=== PATIENT | female | born 1940 | race Caucasian/White ===

== ENCOUNTER 2025-05-04 14:53 | Emergency (ER) | payer MEDICARE, SELFPAY ==
[2025-05-04 15:05] VITALS: BP 141/73; PULSE 70; RESP 18; TEMP 36.3; O2SAT 94
--- OUTSIDE RECORDS SUMMARY | 2025-05-04 15:23 | XMS_ITS | Clinical Summary ---
Author Organization [facility] [employer] [facility] Address [address] [place] [phone] Phone Care Team Providers Care Telephone Clerk Telegraph Office Name Role Phone Bryce Dior MD Primary Care Provider [phone] Allergies Active Allergy Reactions Criticality Noted Date Comments Codeine Hallucinations 11/18/2023 Sulfa Antibiotics Hives 11/18/2023 Medications metoprolol tartrate (LOPRESSOR) 50 MG Tablet Take 50 mg by mouth 2 times daily. Active amLODIPine (NORVASC) 5 MG Tablet Take 5 mg by mouth daily. Active warfarin (COUMADIN) 5 MG Tablet Take 5 mg by mouth every evening. Active ondansetron (ZOFRAN-ODT) 4 MG TABLET DISPERSIBLE Take 1 Tablet by mouth every 6 hours as needed for Nausea - 1st line. 10 Tablet 4 Active polyethylene glycol (GLYCOLAX, MIRALAX) 17 g PackIndications :Constipation Take 1 Packet by mouth 2 times daily as needed for Constipation - 1st line. Dissolve in 4-8 oz of liquid. Indications: Constipation 90 Packet 4 Active senna (SENOKOT) 8.6 MG Tablet Take 1 Tablet by mouth 2 times daily as needed for Constipation - 2nd line. 30 Tablet 4 Active Active Problems Problem Noted Date Diagnosed Date Pulmonary embolism 11/18/2023 Hypertension 11/18/2023 Atrial fibrillation 11/18/2023 Multiple subsegmental pulmon kush emboli without acute cor pulmonale 11/18/2023 Social History Tobacco Use Types Packs/Day Years Used Date Smoking Tobacco: Never Smokeless Tobacco: Never Tobacco Cessation:Counseling Given: Not Answered Alcohol Use Standard Drinks/Week Comments Never 0 (1 standard drink = 0.6 oz pur e alcohol) [facility] Utilities Answer Date Recorded In the past 12 months has e electric, gas, oil, or water company threatened to shut off services in your home? Patient declined 11/18/2023 Social Connection and Isolation Panel Answer Date Recorded In a typical week, how many times do you talk on the phone with family, friends, or neighbors? Patient declined 11/18/2023 How often do you get togethe r with friends or relatives? Patient declined 11/18/2023 How often do you attend methodist or restorationist serv ices? Patient declined 11/18/2023 Do you belong to any clubs o r organizations such as methodist groups, unions, fraternal or athletic groups, or school groups? Patient declined 11/18/2023 How often do you attend meet ings of the clubs or organizations you belong to? Patient declined 11/18/2023 Are you , , di vorced, , never , or living with a partner? Patient declined 11/18/2023 AUDIT-C Answer Date Recorded Q1: How often do you have a drink containing alc ohol? Patient declined 11/18/2023 Q2: How many drinks containi ng alcohol do you have on a typical day when you are drinking? Patient declined 11/18/2023 Q3: How often do you have si x or more drinks on one occasion? Patient declined 11/18/2023 Overall Financial Resource Strain (CARDIA) Answe r Date Recorded How hard is it for you to pa y for the very basics like food, housing, medical care, and heating? Patient declined 11/18/2023 [facility] Occupat ional Health - Occupational Stress Questionnaire Answer Date Recorded Do you feel stress - tense, restless, nervous, or anxious, or unable to sleep at night because your mind is troubled all the time - these days? Patient declined 11/18/2023 Exercise Vital Sign Answer Date Recorde d On average, how many days pe r week do you engage in moderate to strenuous exercise (like a brisk walk)? Patient declined On average, how many minutes do you engage in exercise at this level? Patient declined 11/18/2023 Hunger Vital Sign Answer Date Recorded Within the past 12 months, y ou worried that your food would run out before you got the money to buy more. Patient declined Within the past 12 months, t he food you bought just didn't last and you didn't have money to get more. Patient declined PRAPARE - Transportation Answer Date Re corded In the past 12 months, has l ack of transportation kept you from medical appointments or from getting medications? Patient declined 11/18/2023 In the past 12 months, has l ack of transportation kept you from meetings, work, or from getting things needed for daily living? Patient declined 11/18/2023 Housing Stability Vital Sign Answer Declan e Recorded In the last 12 months, was t here a time when you were not able to pay the mortgage or rent on time? Patient declined 11/18/19 24 In the last 12 months, how many places have you lived? 1 11/18/2023 In the last 12 months, was t here a time when you did not have a steady place to sleep or slept in a long term (including now)? Patient declined 11/18/2023 Comments No Sex and Gender Information Value Date Recorded Sex Assigned at Not on file Legal Sex Female 5:19 AM ICU RN Gender Identity Not on file Sexual Orientation Not on file Last Filed Vital Signs Vital Sign Reading Time Taken Comments Blood Pressure 120/62 11/21/2023 12:00 PM ICU RN Pulse 71 11/20/2023 9:07 PM ICU RN Temperature 37.3 C (99.1 F) 11/21/2023 12:00 PM ICU RN Respiratory Rate 20 11/21/2023 12:00 PM ICU RN Oxygen Saturation 96% 11/21/2023 12:00 PM ICU RN Inhaled Oxygen Concentration - - Weight 95.8 kg (211 lb 1.6 oz) 11/18/2023 1:58 P M ICU RN Height 160 cm (5' 3) 11/18/2023 1:58 PM ICU RN Body Mass Index 37.39 11/18/2023 1:58 PM ICU RN Plan of Treatment Health Maintenance Due Date Last Done Comments DEXA Bone Density 1940 Hepatitis C Virus (HCV) Screening 1940 TdaP Immunization 1940 Zoster Immunization (1 of 2) 1990 Pneumococcal Immunization (50+ years) (2 of 2 - PCV) 07/22/2015 07/22/2014 Respiratory Syncytial Virus (RSV) Immunization (Adult) (1 - 1-dose 75+ series) 2015 Influenza Immunization (#1) 07/05/202408/04, 08/20/2022, 08/08/2021, Additional history exists SARS-COV-2 Immunization ( season) 2024 09/04/2023, 08/28/2022, 10/21/2021, Additional history exists Hepatitis B Immunization Aged Out No longer eligible based on patient's age to complete this topic Meningococcal Immunization (ACWY) Aged Out No longer eligible based on patient's age to complete this topic Rotavirus Immunization Aged Out No lo nger eligible based on patient's age to complete this topic Insurance MEDICARE [facility] [place] [id number] Advance Directives * Full Code (Latest Code Status on File) Date Activated Date Inactivated Comments 11/18/2023 3:05 PM 11/21/2023 6:25 PM CPR-Full Thony atment: FULL ARREST: Attempt Resuscitation/CPR wit intubation and mechanical ventilation. PRE-ARREST: Use entire range of life support measures to stabilize the patient. Care Teams Telephone Clerk Telegraph Office Relationship Specialty Start Date End Date Bryce Dior MD [address] [place], [place] [id number] PCP - General Family Medicine 11/18/23
[2025-05-04 15:29] LABS: INR 1.5; Prothrombin Time 16.0 Seconds (9.50-12.1)
--- NOTE | 2025-05-04 15:42 | ED.RECABL ---
HPI - Recheck/Abnormal Lab/Rx General Chief Complaint: Recheck/Abnormal Lab/Rx Stated Complaint: abnormal labs Source: patient Mode of arrival: ambulatory Limitations: no limitations History of Present Illness HPI narrative: patient with a history of pulmonary embolism and DVTs present because she had an abnormally high INR and her primary care physician called her and advised her to present to the emergency department for further evaluation and treatment. Patient upon examination is doing well no shortness of breath no chest pain no abnormal bleeding no hemostat axis no hematemesis no hematuria no evidence of bleeding. Patient is doing well asymptomatic. Initial visit (ago): hour(s) Review of Systems Review of Systems: All systems reviewed & are unremarkable except as noted in HPI and below PMFSH Past Medical History Medical History History of pulmonary embolism Exam Const: General: healthy appearing, no acute distress and alert Nutritional Appearance: well nourished and obese Orientation/consciousness: patient oriented x3 Limitations: no limitations HENMT: Head: normal to inspection Eyes: Conjunctivae: conjunctivae normal Pupils: Equal, round and reactive pupils present EOM: EOMs intact bilaterally Neck: Neck: normal visual inspection, no lymphadenopathy and no meningeal signs Chest: Chest palpation & inspection: normal inspection of the chest Resp: Effort & Inspection: normal respiratory effort Auscultation: clear to auscultation bilaterally Cardio: Rate: regular rate Rhythm: regular rhythm GI: Auscultation: normal bowel sounds : General: Yes bladder normal to palpation Urinary Catheter: Urinary Catheter: patent and draining Skin: General skin exam: normal color Rashes: no rashes Wounds: no wounds Neuro: General: patient oriented x3, moves all extremities, no meningeal signs and no focal motor deficits Extrem: General: normal to inspection, no clubbing, cyanosis or edema and no pedal edema Course Course Emergency Course: patient recheck of her PT INR her INR is currently 1.5 advised her to go home and take her regular dose of Coumadin, reassured patient that she has a normal INR and to follow with her primary care physician next 3 to 5 days. Vital Signs Vital signs: Vital Signs Temperature 36.3 C L 05/04/25 15:05 Pulse Rate 70 05/04/25 15:05 Respiratory Rate 18 05/04/25 15:05 Blood Pressure 141/73 H 05/04/25 15:05 Pulse Oximetry 94 05/04/25 15:05 Oxygen Delivery Room Air 05/04/25 15:05 Temperature 36.3 C L 05/04/25 15:05 Pulse Rate 70 05/04/25 15:05 Respiratory Rate 18 05/04/25 15:05 Blood Pressure 141/73 H 05/04/25 15:05 Pulse Oximetry 94 05/04/25 15:05 Oxygen Delivery Room Air 05/04/25 15:05 MDM - Recheck/Abnormal Lab/Rx Lab Data Labs: Lab Results 05/04/25 Range/Units 15:09 PT 16.0 H (9.50-12.1) Seconds INR 1.5 Critical Care Time Critical Care Time Critical Care Time: No Discharge Plan Discharge Clinical Impression: History of maternal pulmonary embolus Patient Disposition: Home Condition: Stable Instructions: Antibiotic Form, Warfarin (By mouth), Normal Exam (ED) Additional Instructions: advised patient to continue her Coumadin as scheduled and to follow up with primary care physician within next 3 to 5 days. Patient Language: Mauritanian Follow-up/Referrals: Barby,MD Bryce [Primary Care Provider] - Time of Disposition: 15:46
== END 2025-05-04 15:50 | disposition home or self-care (01) ==
PROVIDERS: Emergency Provider Emergency Medicine; PCP Family Medicine
DX: R79.1 Abnormal coagulation profile (principal); Z86.711 Personal history of pulmonary embolism
CPT/HCPCS: 36415; 85610; 99283

== ENCOUNTER 2025-05-05 15:25 | Outpatient (CLI) | payer MEDICARE, SELFPAY ==
--- OUTSIDE RECORDS SUMMARY | 2025-05-05 15:31 | XMS_ITS | Clinical Summary ---
Author Organization [facility] Address [address] [place] [address] Care Team Providers Care Glass Ribbon Machine Operator Assistant Name Role Phone Bryce Diro MD Primary Care Provider [phone] Allergies Active Allergy Reactions Criticality Noted Date Comments Codeine Unknown 04/13/2016 Sulfa Antibiotics Unknown 04/13/2016 Medications metoprolol tartrate (LOPRESSOR) 50 MG tablet Take 1 tablet (50 mg total) by mouth 2 (two) times daily. 01/26/2015 Active warfarin (COUMADIN) 5 MG tablet 12/14/2022 Active amLODIPine (NORVASC) 2.5 MG tablet Take 1 tablet (2.5 mg total) by mouth daily. Active Active Problems No known active problems Social History Tobacco Use Types Packs/Day Years Used Date Smoking Tobacco: Never Comments Unknown Sex and Gender Information Value Date Recorded Sex Assigned at Not on file Legal Sex Female 10:30 PM CDT Gender Identity Not on file Sexual Orientation Not on file Last Filed Vital Signs Vital Sign Reading Time Taken Comments Blood Pressure 122/83 11/18/2023 11:30 AM CORRECTIONS CASEWORKER Pulse 83 11/18/2023 11:30 AM CORRECTIONS CASEWORKER Temperature 37.1 C (98.7 F) 11/17/2023 11:27 PM CORRECTIONS CASEWORKER Respiratory Rate 23 11/18/2023 11:30 AM CORRECTIONS CASEWORKER Oxygen Saturation 96% 11/18/2023 11:30 AM CORRECTIONS CASEWORKER Inhaled Oxygen Concentration - - Weight 94.2 kg (207 lb 9.6 oz) 11/18/2023 3:14 A M CORRECTIONS CASEWORKER Height 160 cm (5' 3) 11/17/2023 11:27 PM CORRECTIONS CASEWORKER Body Mass Index 36.77 11/17/2023 11:27 PM CORRECTIONS CASEWORKER Plan of Treatment Health Maintenance Due Date Last Done Comments DTaP, Tdap and Td Vaccines (1 - Tdap) 1959 Zoster Vaccines (1 of 2) 1990 Annual Medicare Wellness Visit 2005 Dexa Scan (General) 2005 Pneumococcal Vaccine: 50+ Years (2 of 2 - PCV) 07/22/2015 07/22/2014 RSV Immunization or 60+ Years (1 - 1-dose 75+ series) 2015 COVID-19 Vaccine ( - season) 2024 08/28/2022, 10/21/2021, 02/10/2021, Additional history exists Meningococcal B Vaccine Aged Out No l onger eligible based on patient's age to complete this topic Meningococcal Vaccine Aged Out No nathaly alondra eligible based on patient's age to complete this topic RSV Immunizations Under 20 Months Aged Out No longer eligible based on patient's age to complete this topic Insurance MEDICARE [facility] [place] [id number] Advance Directives Documents on File Type Date Recorded Patient [employer] Systems Installer Expl anation Advance Directives and Living Will 03/06/2015 SHORT FORM POWER OF STEEL BARREL REAMER Advance Directives and Living Will 03/06/2015 Advance Directives and Living Will 02/26/2013 12:00 AM POWER OF STEEL BARREL REAMER Care Teams Glass Ribbon Machine Operator Assistant Relationship Specialty Start Date End Date Bryce Dior MD [address] [place] [phone] PCP - General FAMILY PRACTICE 12/14/22
--- OUTSIDE RECORDS SUMMARY | 2025-05-05 15:31 | XMS_ITS | Clinical Summary ---
Author Organization [facility] Address [address] [place] [phone] Phone Care Team Providers Care Deputy Director Name Role Phone Bryce Dior MD Primary Care Provider [phone] Allergies Active Allergy Reactions Criticality Noted Date [...] drink = 0.6 oz pur e alcohol) [facility] Utilities Answer Date Recorded In the past [...] declined 11/18/2023 How often do you attend roman catholic or rastafarian serv ices? Patient declined 11/18/2023 Do you belong to any clubs o r organizations such as roman catholic groups, unions, fraternal or athletic groups, or [...] medical care, and heating? Patient declined 11/18/2023 [facility] of Occupat ional Health - Occupational Stress [...] place to sleep or slept in a detention (including now)? Patient declined 11/18/2023 Comments No Sex and Gender Information Value Date Recorded Sex Assigned at Not on file Legal Sex Female 5:19 AM SALES CONSULTANT RESIDENTIAL MANAGER Gender Identity Not on file Sexual Orientation Not on file Last Filed Vital Signs Vital Sign Reading Time Taken Comments Blood Pressure 120/62 11/21/2023 12:00 PM SALES CONSULTANT RESIDENTIAL MANAGER Pulse 71 11/20/2023 9:07 PM SALES CONSULTANT RESIDENTIAL MANAGER Temperature 37.3 C (99.1 F) 11/21/2023 12:00 PM SALES CONSULTANT RESIDENTIAL MANAGER Respiratory Rate 20 11/21/2023 12:00 PM SALES CONSULTANT RESIDENTIAL MANAGER Oxygen Saturation 96% 11/21/2023 12:00 PM SALES CONSULTANT RESIDENTIAL MANAGER Inhaled Oxygen Concentration - - Weight 95.8 kg (211 lb 1.6 oz) 11/18/2023 1:58 P M SALES CONSULTANT RESIDENTIAL MANAGER Height 160 cm (5' 3) 11/18/2023 1:58 PM SALES CONSULTANT RESIDENTIAL MANAGER Body Mass Index 37.39 11/18/2023 1:58 PM SALES CONSULTANT RESIDENTIAL MANAGER Plan of Treatment Health Maintenance Due Date [...] age to complete this topic Insurance MEDICARE [facility] [place] [id number] Advance Directives * Full Code (Latest Code Status on File) Date Activated Date Inactivated Comments 11/18/2023 3:05 PM 11/21/2023 6:25 PM CPR-Full Thony atment: FULL ARREST: Attempt Resuscitation/CPR wit intubation and mechanical ventilation. PRE-ARREST: Use entire range of life support measures to stabilize the patient. Care Teams Deputy Director Relationship Specialty Start Date End Date Bryce Dior MD [address] [place], [place] [phone] PCP - General Family Medicine 11/18/23
--- OUTSIDE RECORDS SUMMARY | 2025-05-05 15:31 | XMS_ITS | Encounter Summary ---
Author Organization [facility] Address [address] [place] [address] Care Team Providers Care Mixer Machine Feeder Name Role Phone Bryce Dior MD Primary Care Provider [phone] Encounter Details Date Type Department Care Team (Late st Contact Info) Description 04/11/2019 Abstract [facility] CONVERSION [address] [place] [address] , Generic Conversion, Social History Tobacco Use Types Packs/Day Years Used Date Smoking Tobacco: Never Comments Unknown Sex and Gender Information Value Date Recorded Sex Assigned at Not on file Legal Sex Female 10:30 PM CDT Gender Identity Not on file Sexual Orientation Not on file documented as of this encounter Plan of Treatment Not on file documented as of this encounter Visit Diagnoses Not on filedocumented in this encounter Additional Health Concerns Infection Onset Date Last Indicated Resolved Time COVID-19 Rule Out 11/17/2023 11/18/2023 11/18/2023 12:52 AM SENIOR C SOFTWARE ENGINEER documented as of this encounter Care Teams Mixer Machine Feeder Relationship Specialty Start Date End Date Bryce Dior MD [address] [place] [phone] PCP - General FAMILY PRACTICE 12/14/22 documented as of this encounter
[2025-05-05 15:56] LABS: INR 1.7; Prothrombin Time 17.7 Seconds (9.50-12.1)
== END 2025-05-05 15:26 | disposition home or self-care (01) ==
PROVIDERS: PCP Family Medicine; Visit Provider Family Medicine
DX: Z79.01 Long term (current) use of anticoagulants (principal)
CPT/HCPCS: 36415; 85610

== ENCOUNTER 2025-05-31 10:16 | Outpatient (CLI) | payer MEDICARE, SELFPAY ==
[2025-05-31 10:51] LABS: INR 2.4; Prothrombin Time 24.0 Seconds (9.50-12.1)
--- OUTSIDE RECORDS SUMMARY | 2025-05-31 10:52 | XMS_ITS | Clinical Summary ---
Author Organization [facility] Address [address] [place] [phone] Phone Care Team Providers Care Electronic System Engineer Name Role Phone Bryce Dior MD Primary Care Provider Allergies Active Allergy Reactions Criticality Noted Date [...] drink = 0.6 oz pur e alcohol) [facility] Utilities Answer Date Recorded In the [...] declined 11/18/2023 How often do you attend pentecostal or worship serv ices? Patient declined 11/18/2023 Do you belong to any clubs o r organizations such as pentecostal groups, unions, fraternal or athletic groups, or [...] medical care, and heating? Patient declined 11/18/2023 [facility] of Occupat ional Health - Occupational [...] place to sleep or slept in a residential (including now)? Patient declined 11/18/2023 Comments No Sex and Gender Information Value Date Recorded Sex Assigned at Not on file Legal Sex Female 5:19 AM OCCASIONAL BABYSITTER Gender Identity Not on file Sexual Orientation Not on file Last Filed Vital Signs Vital Sign Reading Time Taken Comments Blood Pressure 120/62 11/21/2023 12:00 PM OCCASIONAL BABYSITTER Pulse 71 11/20/2023 9:07 PM OCCASIONAL BABYSITTER Temperature 37.3 C (99.1 F) 11/21/2023 12:00 PM OCCASIONAL BABYSITTER Respiratory Rate 20 11/21/2023 12:00 PM OCCASIONAL BABYSITTER Oxygen Saturation 96% 11/21/2023 12:00 PM OCCASIONAL BABYSITTER Inhaled Oxygen Concentration - - Weight 95.8 kg (211 lb 1.6 oz) 11/18/2023 1:58 P M OCCASIONAL BABYSITTER Height 160 cm (5' 3) 11/18/2023 1:58 PM OCCASIONAL BABYSITTER Body Mass Index 37.39 11/18/2023 1:58 PM OCCASIONAL BABYSITTER Plan of Treatment Health Maintenance Due Date Last Done Comments DEXA Bone Density 1940 Hepatitis C Virus (HCV) Screening 1940 TdaP Immunization 1940 Zoster Immunization (1 of 2) 1990 Pneumococcal Immunization (50+ years) (2 of 2 - PCV) 07/22/2015 07/22/2014 Respiratory Syncytial Virus (RSV) Immunization (Adult) (1 - 1-dose 75+ series) 2015 SARS-COV-2 Immunization (2023- season) 2024 09/04/2023, 08/28/2022, 10/21/2021, Additional history exists Influenza Immunization (#1) 07/05/202508/04, 08/20/2022, 08/08/2021, Additional history exists Hepatitis B Immunization Aged Out No longer eligible based on patient's age to complete this topic Human Papillomavirus (HPV) Immunization Aged Out No longer eligible based on patient's age to complete this topic Meningococcal Immunization (ACWY) Aged Out No longer eligible based on patient's age to complete this topic Rotavirus Immunization Aged Out No lo nger eligible based on patient's age to complete this topic Insurance MEDICARE [facility] [place] [id number] Advance Directives * Full Code (Latest Code Status on File) Date Activated Date Inactivated Comments 11/18/2023 3:05 PM 11/21/2023 6:25 PM CPR-Full Thony atment: FULL ARREST: Attempt Resuscitation/CPR wit intubation and mechanical ventilation. PRE-ARREST: Use entire range of life support measures to stabilize the patient. Care Teams Electronic System Engineer Relationship Specialty Start Date End Date Bryce Dior MD [address] [place] [address] PCP - General Family Medicine 11/18/23
--- OUTSIDE RECORDS SUMMARY | 2025-05-31 10:52 | XMS_ITS | Clinical Summary ---
Author Organization [facility] Address [address] [place] [address] Care Team Providers Care Varying Exceptionalities Teacher Name Role Phone Bryce Dior MD Primary Care Provider [phone] Allergies Active Allergy Reactions Criticality Noted Date [...] Comments Blood Pressure 122/83 11/18/2023 11:30 AM RUFFLING HEMMER AUTOMATIC Pulse 83 11/18/2023 11:30 AM RUFFLING HEMMER AUTOMATIC Temperature 37.1 C (98.7 F) 11/17/2023 11:27 PM RUFFLING HEMMER AUTOMATIC Respiratory Rate 23 11/18/2023 11:30 AM RUFFLING HEMMER AUTOMATIC Oxygen Saturation 96% 11/18/2023 11:30 AM RUFFLING HEMMER AUTOMATIC Inhaled Oxygen Concentration - - Weight 94.2 kg (207 lb 9.6 oz) 11/18/2023 3:14 A M RUFFLING HEMMER AUTOMATIC Height 160 cm (5' 3) 11/17/2023 11:27 PM RUFFLING HEMMER AUTOMATIC Body Mass Index 36.77 11/17/2023 11:27 PM RUFFLING HEMMER AUTOMATIC Plan of Treatment Health Maintenance Due Date [...] age to complete this topic Insurance MEDICARE [facility] [place] [id number] Advance Directives Documents on File Type Date Recorded Patient Lift Mechanic Expl anation Advance Directives and Living Will 03/06/2015 SHORT FORM POWER OF DRILLER AND BROACHER Advance Directives and Living Will 03/06/2015 Advance Directives and Living Will 02/26/2013 12:00 AM POWER OF DRILLER AND BROACHER Care Teams Varying Exceptionalities Teacher Relationship Specialty Start Date End Date Bryce Dior MD [address] [place] [phone] PCP - General FAMILY PRACTICE 12/14/22
--- OUTSIDE RECORDS SUMMARY | 2025-05-31 10:52 | XMS_ITS | Encounter Summary ---
Author Organization [facility] Address [address] [place] [address] Care Team Providers Care Asphalt Paving Supervisor Name Role Phone Bryce Dior MD Primary Care Provider [phone] Encounter Details Date Type Department Care Team (Late st Contact Info) Description 04/11/2019 Abstract [facility]FL CONVERSION [address] [place] [address] , Generic Conversion, Social History Tobacco Use [...] Rule Out 11/17/2023 11/18/2023 11/18/2023 12:52 AM INTERNET WEBMASTER documented as of this encounter Care Teams Asphalt Paving Supervisor Relationship Specialty Start Date End Date Bryce Dior MD [address] [place] [phone] PCP - General FAMILY PRACTICE 12/14/22 documented as of this encounter
== END 2025-05-31 10:17 | disposition home or self-care (01) ==
LOC: CHSLAB 10:26
PROVIDERS: PCP Family Medicine; Visit Provider Family Medicine
DX: Z79.01 Long term (current) use of anticoagulants (principal)
CPT/HCPCS: 36415; 85610

== ENCOUNTER 2025-07-06 13:41 | Outpatient (CLI) | payer MEDICARE, SELFPAY ==
--- OUTSIDE RECORDS SUMMARY | 2025-07-06 13:56 | XMS_ITS | Clinical Summary ---
Author Organization [facility] [employer] [employer] [employer] [facility] Address [address] [place] [phone] Phone Care Team Providers Care Corporate Buyer Name Role Phone Bryce Dior MD Primary Care Provider [phone] Allergies Active Allergy Reactions Criticality Noted Date [...] drink = 0.6 oz pur e alcohol) [facility] Utilities Answer Date Recorded In the [...] declined 11/18/2023 How often do you attend restorationism or caodaism serv ices? Patient declined 11/18/2023 Do you belong to any clubs o r organizations such as restorationism groups, unions, fraternal or athletic groups, or [...] medical care, and heating? Patient declined 11/18/2023 [facility] - Occupational [...] file Legal Sex Female 5:19 AM SALES REPRESENTATIVE [facility] [facility] Gender Identity Not on file Sexual Orientation Not on file Last Filed Vital Signs Vital Sign Reading Time Taken Comments Blood Pressure 120/62 11/21/2023 12:00 PM SALES REPRESENTATIVE [facility] Pulse 71 11/20/2023 9:07 PM SALES REPRESENTATIVE [facility] Temperature 37.3 C (99.1 F) 11/21/2023 12:00 PM SALES REPRESENTATIVE [facility] Respiratory Rate 20 11/21/2023 12:00 PM SALES REPRESENTATIVE [facility] Oxygen Saturation 96% 11/21/2023 12:00 PM SALES REPRESENTATIVE [facility] Inhaled Oxygen Concentration - - Weight 95.8 kg (211 lb 1.6 oz) 11/18/2023 1:58 P M SALES REPRESENTATIVE [facility] Height 160 cm (5' 3) 11/18/2023 1:58 PM SALES REPRESENTATIVE [facility] Body Mass Index 37.39 11/18/2023 1:58 PM SALES REPRESENTATIVE [facility] Plan of Treatment Health Maintenance Due Date [...] age to complete this topic Insurance MEDICARE [place] [id number] Advance Directives * Full Code (Latest Code Status on File) Date Activated Date Inactivated Comments 11/18/2023 3:05 PM 11/21/2023 6:25 PM CPR-Full Thony atment: FULL ARREST: Attempt Resuscitation/CPR wit intubation and mechanical ventilation. PRE-ARREST: Use entire range of life support measures to stabilize the patient. Care Teams Corporate Buyer Relationship Specialty Start Date End Date Bryce Dior MD [address] [place] [address] PCP - General Family Medicine 11/18/23
--- OUTSIDE RECORDS SUMMARY | 2025-07-06 13:56 | XMS_ITS | Clinical Summary ---
Author Organization [facility] Address [address] [place] [address] Care Team Providers Care Fence Installer Helper Name Role Phone Bryce Dior MD Primary Care Provider [phone] Allergies Active Allergy Reactions Criticality Noted Date [...] Comments Blood Pressure 122/83 11/18/2023 11:30 AM GEOSPATIAL IMAGERY INTELLIGENCE ANALYST Pulse 83 11/18/2023 11:30 AM GEOSPATIAL IMAGERY INTELLIGENCE ANALYST Temperature 37.1 C (98.7 F) 11/17/2023 11:27 PM GEOSPATIAL IMAGERY INTELLIGENCE ANALYST Respiratory Rate 23 11/18/2023 11:30 AM GEOSPATIAL IMAGERY INTELLIGENCE ANALYST Oxygen Saturation 96% 11/18/2023 11:30 AM GEOSPATIAL IMAGERY INTELLIGENCE ANALYST Inhaled Oxygen Concentration - - Weight 94.2 kg (207 lb 9.6 oz) 11/18/2023 3:14 A M GEOSPATIAL IMAGERY INTELLIGENCE ANALYST Height 160 cm (5' 3) 11/17/2023 11:27 PM GEOSPATIAL IMAGERY INTELLIGENCE ANALYST Body Mass Index 36.77 11/17/2023 11:27 PM GEOSPATIAL IMAGERY INTELLIGENCE ANALYST Plan of Treatment Health Maintenance Due Date [...] to complete this topic Insurance MEDICARE [place] [id number] Advance Directives Documents on File Type Date Recorded Patient Plastics Worker Expl anation Advance Directives and Living Will 03/06/2015 SHORT FORM POWER OF INTERVENTIONAL TECHNOLOGIST Advance Directives and Living Will 03/06/2015 Advance Directives and Living Will 02/26/2013 12:00 AM POWER OF INTERVENTIONAL TECHNOLOGIST Care Teams Fence Installer Helper Relationship Specialty Start Date End Date Bryce Dior MD [address] [place] [phone] PCP - General FAMILY PRACTICE 12/14/22
--- OUTSIDE RECORDS SUMMARY | 2025-07-06 13:56 | XMS_ITS | Encounter Summary ---
Author Organization [facility] Address [address] [place] [address] Care Team Providers Care Precision Instrument Maker Name Role Phone Bryce Dior MD Primary Care Provider [phone] Encounter Details Date Type Department Care Team (Late st Contact Info) Description 04/11/2019 Abstract SFL CONVERSION [address] [place] [address] , Generic Conversion, Social History Tobacco Use [...] Rule Out 11/17/2023 11/18/2023 11/18/2023 12:52 AM CAMP MANAGER documented as of this encounter Care Teams Precision Instrument Maker Relationship Specialty Start Date End Date Bryce Dior MD [address] [place] [phone] PCP - General FAMILY PRACTICE 12/14/22 documented as of this encounter
[2025-07-06 14:07] LABS: INR 2.6; Prothrombin Time 26.5 Seconds (9.50-12.1)
== END 2025-07-06 13:42 | disposition home or self-care (01) ==
LOC: CHSLAB 13:43
PROVIDERS: PCP Family Medicine; Visit Provider Family Medicine
DX: Z79.01 Long term (current) use of anticoagulants (principal)
CPT/HCPCS: 36415; 85610

== ENCOUNTER 2025-08-06 13:40 | Outpatient (RCR) | payer MEDICARE, SELFPAY ==
[2025-05-10 14:16] LABS: INR 1.3; Prothrombin Time 14.4 Seconds (9.50-12.1)
[2025-05-13 11:06] LABS: INR 1.5; Prothrombin Time 15.7 Seconds (9.50-12.1)
[2025-05-21 10:23] LABS: INR 1.3; Prothrombin Time 14.2 Seconds (9.50-12.1)
[2025-05-24 11:37] LABS: INR 1.5; Prothrombin Time 16.2 Seconds (9.50-12.1)
[2025-06-07 11:13] LABS: INR 2.9; Prothrombin Time 28.5 Seconds (9.50-12.1)
[2025-06-21 10:40] LABS: INR 2.6; Prothrombin Time 26.2 Seconds (9.50-12.1)
[2025-08-06 14:15] LABS: INR 2.8; Prothrombin Time 28.1 Seconds (9.50-12.1)
== END 2025-08-08 23:59 | disposition home or self-care (01) ==
LOC: CHSLAB 13:40
PROVIDERS: PCP Family Medicine; Visit Provider Family Medicine
DX: Z79.01 Long term (current) use of anticoagulants (principal)
CPT/HCPCS: 36415; 85610

== ENCOUNTER 2025-11-02 11:09 | Emergency (ER) | payer MEDICARE, SELFPAY ==
[2025-11-02] VITALS (7 sets, daily range): BP systolic 124–144; BP diastolic 64–92; PULSE 57–67; RESP 16–17; TEMP 36.4; O2SAT 96–97
--- NOTE | ~2025-11-02 | CT_ITS ---
EXAMINATION: CT brain wo con DATE: 11/02/2025 11:48 INDICATION: Transient ischemic attack. TECHNIQUE: Computed tomography (CT) of the head was performed without intravenous contrast. The mA was adjusted according to patient size. Iterative reconstruction technique was employed. The dose-length product was 605.33 mGy-cm. COMPARISON: None FINDINGS: There are scattered areas of low attenuation in the cerebral white matter, which is within normal limits for the patient's age. There is no intracranial hemorrhage, acute infarction, or abnormal intracranial mass lesion. The ventricles are normal in size. There is mild mucosal thickening in the paranasal sinuses. The orbits are normal. The mastoid air cells are normal. 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 IMPRESSION: 1. Normal aging brain. Reviewed, dictated and finalized at location E. [facility] IMPRESSION: 1. Normal aging brain.
--- NOTE | 2025-11-02 11:21 | ECG_ITS ---
Test Date: 2025-11-02 11:48:39 Measurements Intervals [place] Rate: 61 P: 51 NM: 192 QRS: -16 QRSD: 106 T: 33 QT: 418 QTc: 424 Interpretive Statements SINUS RHYTHM POSSIBLE ANTERIOR MYOCARDIAL INFARCTION , PROBABLY OLD BORDERLINE ECG No previous ECG available for comparison Electronically Signed On 11-02-2025 19:38:46 COSMETOLOGY PROFESSOR by Eric Cruz D.O.
[2025-11-02 11:34] LABS: Hematocrit 45.0 % (35.0-42.0); Hemoglobin 14.2 g/dL (11.7-13.8); Immature Granulocyte Percent A 0.4 % (0.0-0.0); Lymphocytes Absolute Auto 1.37 K/mm3 (1.10-4.50); Mean Corpuscular HGB Conc 31.6 g/dL (32-36); Mean Corpuscular Hemoglobin 29.8 pg (27.0-31.0); Mean Corpuscular Volume 94.3 fL (78.0-102.0); Nucleated Red Blood Cells Absolute Auto 0.00 K/mm3 (0.00-0.00); Nucleated Red Blood Cells Perc 0.0 % (0-0.0); Platelet Count Result 218 K/mm3 (150-420); Red Blood Count 4.77 M/mm3 (4.20-5.40); White Blood Count 8.1 K/mm3 (4.8-10.8)
--- NOTE | 2025-11-02 11:34 | PC.NURSE ---
patient being taken down to CT
[2025-11-02 11:46] LABS: INR 1.8; Prothrombin Time 19.1 Seconds (9.50-12.1)
[2025-11-02 11:53] LABS: Alanine Aminotransferase 17 U/L (6-35); Albumin Level 4.2 g/dL (3.5-5.1); Alkaline Phosphatase 94 U/L (38-126); Anion Gap 7 mmol/L (4-12); Aspartate Amino Transferase 30 U/L (14-36); Bilirubin,Total 1.0 mg/dL (0.2-1.3); Blood Urea Nitrogen 19 mg/dL (7-17); Calcium 9.3 mg/dL (8.4-10.2); Carbon Dioxide 27 mmol/L (22-30); Chloride 111 mmol/L (98-107); Estimated CRCL calculation 36 ml/min; Estimated Glomerular Filt Rate 46; Glucose 103 mg/dL (65-110); Osmolality Calculated 302 mOsm/kg (285-295); Potassium 5.6 mmol/L (3.4-5.0); Sodium 145 mmol/L (137-145); Total Protein 7.6 g/dL (6.3-8.2)
--- OUTSIDE RECORDS SUMMARY | 2025-11-02 11:54 | XMS_ITS | Clinical Summary ---
Author Organization [facility] Address [address] [place] [address] Care Team Providers Care Honing Machine Set Up Operator Tool Name Role Phone Bryce Dior MD Primary Care Provider [phone] Allergies Active Allergy Reactions Criticality Noted Date [...] Comments Blood Pressure 122/83 11/18/2023 11:30 AM TOW MOTOR DRIVER Pulse 83 11/18/2023 11:30 AM TOW MOTOR DRIVER Temperature 37.1 C (98.7 F) 11/17/2023 11:27 PM TOW MOTOR DRIVER Respiratory Rate 23 11/18/2023 11:30 AM TOW MOTOR DRIVER Oxygen Saturation 96% 11/18/2023 11:30 AM TOW MOTOR DRIVER Inhaled Oxygen Concentration - - Weight 94.2 kg (207 lb 9.6 oz) 11/18/2023 3:14 A M TOW MOTOR DRIVER Height 160 cm (5' 3) 11/17/2023 11:27 PM TOW MOTOR DRIVER Body Mass Index 36.77 11/17/2023 11:27 PM TOW MOTOR DRIVER Plan of Treatment Health Maintenance Due Date Last Done Comments DTaP, Tdap and Td Vaccines (1 - Tdap) 1959 Zoster Vaccines (1 of 2) 1990 Annual Medicare Wellness Visit 2005 Pneumococcal Vaccine: 50+ Years (2 of 2 - PCV) 07/22/2015 07/22/2014 RSV Immunization or 60+ Years (1 - 1-dose 75+ series) 2015 COVID-19 Vaccine (5 - season) 2025 08/28/2022, 10/21/2021, 02/10/2021, Additional history exists Influenza Adult (#1) 2025 08/20/2022, 08/08/2021, 07/27/2020, Additional history exists Hepatitis A Vaccines Aged Out No long er eligible based on patient's age to complete this topic Meningococcal B Vaccine Aged Out No l onger eligible based on patient's age to complete this topic Meningococcal Vaccine Aged Out No nathaly alondra eligible based on patient's age to complete this topic RSV Immunizations Under 20 Months Aged Out No longer eligible based on patient's age to complete this topic Insurance [facility] [place] [id number] Advance Directives Documents on File Type Date Recorded Patient Research Investigator Expl anation Advance Directives and Living Will 03/06/2015 SHORT FORM POWER OF DIRECTOR OF DIAGNOSTIC IMAGING Advance Directives and Living Will 03/06/2015 Advance Directives and Living Will 02/26/2013 12:00 AM POWER OF DIRECTOR OF DIAGNOSTIC IMAGING Care Teams Honing Machine Set Up Operator Tool Relationship Specialty Start Date End Date Bryce Dior MD [address] [place] [phone] PCP - General FAMILY PRACTICE 12/14/22
--- OUTSIDE RECORDS SUMMARY | 2025-11-02 11:54 | XMS_ITS | Clinical Summary ---
Author Organization [facility] Address [address] [place] [phone] Phone Care Team Providers Care House Detective Name Role Phone Bryce Dior MD Primary Care Provider [phone] Allergies Active Allergy Reactions Criticality Noted Date [...] drink = 0.6 oz pur e alcohol) [facility] Utilities Answer Date Recorded In the past [...] declined 11/18/2023 How often do you attend jain or holiness serv ices? Patient declined 11/18/2023 Do you belong to any clubs o r organizations such as jain groups, unions, fraternal or athletic groups, or [...] medical care, and heating? Patient declined 11/18/2023 [facility] of Occupat ional Health - Occupational Stress [...] place to sleep or slept in a retirement (including now)? Patient declined 11/18/2023 Comments No Sex and Gender Information Value Date Recorded Sex Assigned at Not on file Legal Sex Female 5:19 AM MACHINE ADJUSTER LEADER Gender Identity Not on file Sexual Orientation Not on file Last Filed Vital Signs Vital Sign Reading Time Taken Comments Blood Pressure 120/62 11/21/2023 12:00 PM MACHINE ADJUSTER LEADER Pulse 71 11/20/2023 9:07 PM MACHINE ADJUSTER LEADER Temperature 37.3 C (99.1 F) 11/21/2023 12:00 PM MACHINE ADJUSTER LEADER Respiratory Rate 20 11/21/2023 12:00 PM MACHINE ADJUSTER LEADER Oxygen Saturation 96% 11/21/2023 12:00 PM MACHINE ADJUSTER LEADER Inhaled Oxygen Concentration - - Weight 95.8 kg (211 lb 1.6 oz) 11/18/2023 1:58 P M MACHINE ADJUSTER LEADER Height 160 cm (5' 3) 11/18/2023 1:58 PM MACHINE ADJUSTER LEADER Body Mass Index 37.39 11/18/2023 1:58 PM MACHINE ADJUSTER LEADER Plan of Treatment Health Maintenance Due Date Last Done Comments DEXA Bone Density 1940 Hepatitis C Virus (HCV) Screening 1940 TdaP Immunization 1940 Zoster Immunization (1 of 2) 1990 Medicare Initial AWV [id number] 08/04/2006 Pneumococcal Immunization (50+ years) (2 of 2 - PCV) 07/22/2015 07/22/2014 Respiratory Syncytial Virus (RSV) Immunization (Adult) (1 - 1-dose 75+ series) 2015 Influenza Immunization (#1) 07/05/202508/04, 08/20/2022, 08/08/2021, Additional history exists SARS-COV-2 Immunization ( season) 2025 09/04/2023, 08/28/2022, 10/21/2021, Additional history exists Hepatitis [...] age to complete this topic Insurance MEDICARE [facility] [place] [id number] Advance Directives * Full Code (Latest Code Status on File) Date Activated Date Inactivated Comments 11/18/2023 3:05 PM 11/21/2023 6:25 PM CPR-Full Thony atment: FULL ARREST: Attempt Resuscitation/CPR wit intubation and mechanical ventilation. PRE-ARREST: Use entire range of life support measures to stabilize the patient. Care Teams House Detective Relationship Specialty Start Date End Date Bryce Dior MD [address] [place] [address] PCP - General Family Medicine 11/18/23
--- OUTSIDE RECORDS SUMMARY | 2025-11-02 11:54 | XMS_ITS | Encounter Summary ---
Author Organization [facility] Address [address] [place] [address] Care Team Providers Care Legal Services Professional Name Role Phone Bryce Dior MD Primary Care Provider [phone] Encounter Details Date Type Department Care Team (Late st Contact Info) Description 04/11/2019 Abstract SFL CONVERSION [address] [place] [address] , Generic Conversion, Social History Tobacco Use [...] Rule Out 11/17/2023 11/18/2023 11/18/2023 12:52 AM CASH CHECKER documented as of this encounter Care Teams Legal Services Professional Relationship Specialty Start Date End Date Bryce Dior MD [address] [place] [address] PCP - General FAMILY PRACTICE 12/14/22 documented as of this encounter
[2025-11-02 12:10] LABS: Troponin I 0.012 ng/mL (0.000-0.034)
--- OUTSIDE RECORDS SUMMARY | 2025-11-02 12:55 | XMS_ITS | Encounter Summary ---
Author Organization [facility] Address [address] [place] [address] Care Team Providers Care Gum Cook Name Role Phone Bryce Dior MD Primary Care Provider [phone] Encounter Details Date Type Department Care Team (Late st Contact Info) Description 04/11/2019 Abstract SFL CONVERSION [address] [place] [address] , Generic Conversion, Social History Tobacco Use [...] Rule Out 11/17/2023 11/18/2023 11/18/2023 12:52 AM PRACTICE MANAGER documented as of this encounter Care Teams Gum Cook Relationship Specialty Start Date End Date Bryce Dior MD [address] [place] [phone] PCP - General FAMILY PRACTICE 12/14/22 documented as of this encounter
--- OUTSIDE RECORDS SUMMARY | 2025-11-02 12:55 | XMS_ITS | Clinical Summary ---
Author Organization [facility] Address [address] [place] [address] Care Team Providers Care Protective Signal Operations Supervisor Name Role Phone Bryce Dior MD Primary Care Provider [phone] Allergies Active Allergy Reactions Criticality Noted Date [...] Comments Blood Pressure 122/83 11/18/2023 11:30 AM RECREATION MANAGER Pulse 83 11/18/2023 11:30 AM RECREATION MANAGER Temperature 37.1 C (98.7 F) 11/17/2023 11:27 PM RECREATION MANAGER Respiratory Rate 23 11/18/2023 11:30 AM RECREATION MANAGER Oxygen Saturation 96% 11/18/2023 11:30 AM RECREATION MANAGER Inhaled Oxygen Concentration - - Weight 94.2 kg (207 lb 9.6 oz) 11/18/2023 3:14 A M RECREATION MANAGER Height 160 cm (5' 3) 11/17/2023 11:27 PM RECREATION MANAGER Body Mass Index 36.77 11/17/2023 11:27 PM RECREATION MANAGER Plan of Treatment Health Maintenance Due [...] patient's age to complete this topic Insurance [facility] [place] [id number] Advance Directives Documents on File Type Date Recorded Patient Front Office Help Expl anation Advance Directives and Living Will 03/06/2015 SHORT FORM POWER OF EDUCATIONAL INSTITUTION CURATOR Advance Directives and Living Will 03/06/2015 Advance Directives and Living Will 02/26/2013 12:00 AM POWER OF EDUCATIONAL INSTITUTION CURATOR Care Teams Protective Signal Operations Supervisor Relationship Specialty Start Date End Date Bryce Dior MD [address] [place] [phone] PCP - General FAMILY PRACTICE 12/14/22
--- OUTSIDE RECORDS SUMMARY | 2025-11-02 12:55 | XMS_ITS | Clinical Summary ---
Author Organization [facility] Address [address] [place] [phone] Phone Care Team Providers Care Torch Solderer Name Role Phone Bryce Dior MD Primary Care Provider [phone] Allergies Active Allergy Reactions Criticality Noted Date [...] drink = 0.6 oz pur e alcohol) [facility] Utilities Answer Date Recorded In the past [...] declined 11/18/2023 How often do you attend presybeterian or amish serv ices? Patient declined 11/18/2023 Do you belong to any clubs o r organizations such as presybeterian groups, unions, fraternal or athletic groups, or [...] medical care, and heating? Patient declined 11/18/2023 [facility] of Occupat ional Health - [...] place to sleep or slept in a fci (including now)? Patient declined 11/18/2023 Comments No Sex and Gender Information Value Date Recorded Sex Assigned at Not on file Legal Sex Female 5:19 AM AIR CONTROL ELECTRONICS OPERATOR Gender Identity Not on file Sexual Orientation Not on file Last Filed Vital Signs Vital Sign Reading Time Taken Comments Blood Pressure 120/62 11/21/2023 12:00 PM AIR CONTROL ELECTRONICS OPERATOR Pulse 71 11/20/2023 9:07 PM AIR CONTROL ELECTRONICS OPERATOR Temperature 37.3 C (99.1 F) 11/21/2023 12:00 PM AIR CONTROL ELECTRONICS OPERATOR Respiratory Rate 20 11/21/2023 12:00 PM AIR CONTROL ELECTRONICS OPERATOR Oxygen Saturation 96% 11/21/2023 12:00 PM AIR CONTROL ELECTRONICS OPERATOR Inhaled Oxygen Concentration - - Weight 95.8 kg (211 lb 1.6 oz) 11/18/2023 1:58 P M AIR CONTROL ELECTRONICS OPERATOR Height 160 cm (5' 3) 11/18/2023 1:58 PM AIR CONTROL ELECTRONICS OPERATOR Body Mass Index 37.39 11/18/2023 1:58 PM AIR CONTROL ELECTRONICS OPERATOR Plan of Treatment Health Maintenance Due Date [...] age to complete this topic Insurance MEDICARE [facility] [place] [id number] Advance Directives * Full Code (Latest Code Status on File) Date Activated Date Inactivated Comments 11/18/2023 3:05 PM 11/21/2023 6:25 PM CPR-Full Thony atment: FULL ARREST: Attempt Resuscitation/CPR wit intubation and mechanical ventilation. PRE-ARREST: Use entire range of life support measures to stabilize the patient. Care Teams Torch Solderer Relationship Specialty Start Date End Date Bryce Dior MD [address] [place] [address] PCP - General Family Medicine 11/18/23
--- NOTE | 2025-11-02 13:20 | ED.GENADULT ---
HPI - General Adult General Chief complaint: Unspecified Stated complaint: possible TIA yesterday Time Seen by Provider: 11/02/25 11:14 Source: patient Mode of arrival: ambulatory Limitations: no limitations History of Present Illness HPI narrative: 85-year-old with a history of PE on warfarin, hypertension AR with a complains of unable to get words yesterday while she was talking to her son for about 15 minutes. Patient states that she did fine after that had no headache or any kind of weakness , Ashlie called her PMD advised her to go to the ER for evaluation Onset (ago): day(s) (1) Severity: mild Exacerbating factors: none Associated symptoms: denies other symptoms Related Data Allergies Allergy/AdvReac Type Severity Reaction Status Date / Time Sulfa (Sulfonamide Allergy Severe Rash Verified 11/02/25 11:34 Antibiotics) Review of Systems Review of Systems: All systems reviewed & are unremarkable except as noted in HPI and below Constitutional: Constitutional: Reports no additional constitutional complaints Eyes: Eyes: Reports no additional eye complaints ENT: Reports system reviewed and no additional complaints, except as documented Cardiovascular: Cardiovascular: Reports no additional cardiovascular complaints Respiratory: Respiratory: Reports no additional respiratory complaints Gastrointestinal: Gastrointestinal: Reports no additional gastrointestinal complaints Musculoskeletal: Musculoskeletal: Reports no additional musculoskeletal complaints Neurologic: Reports as per HPI Psychiatric: Psychiatric: Reports no additional psychiatric complaints PMFSH Past Medical History Medical History History of pulmonary embolism Exam Narrative: GENERAL: Well-appearing, well-nourished, and in no acute distress. HEAD: Normocephalic, atraumatic. EYES: PERRLA and EOMI. ENT: Nares clear, no rhinorrhea or epistaxis. Mucous membranes moist. NECK: Supple. CHEST: Clear to auscultation. No respiratory distress. HEART: Regular rate and rhythm. No murmur heard. Normal peripheral pulses. ABDOMEN: Soft, nontender, nondistended, normal active bowel sounds. EXTREMITIES: Normal range of motion. No edema. SKIN: Warm, dry, no rash. NEURO: No focal deficits. Alert and oriented x3. PSYCH: Normal mood and affect. Course Course Emergency Course: patient remained asymptomatic while she was here in the ER informed her and family about her lab work, CT findings. I discussed with Dr. Dior he will follow up on outpatient basis and order MRI. Advised her to continue with the warfarin for now. Family is comfortable taking her back home Vital Signs Vital signs: Vital Signs Temperature 36.4 C 11/02/25 11:09 Pulse Rate 67 11/02/25 11:09 Respiratory Rate 16 11/02/25 11:09 Blood Pressure 144/77 H 11/02/25 11:09 Pulse Oximetry 96 11/02/25 11:09 Oxygen Delivery Room Air 11/02/25 11:09 Temperature 36.4 C 11/02/25 11:09 Pulse Rate 67 11/02/25 11:09 Respiratory Rate 16 11/02/25 11:09 Blood Pressure 144/77 H 11/02/25 11:09 Pulse Oximetry 96 11/02/25 11:09 Oxygen Delivery Room Air 11/02/25 11:09 MDM Differential Diagnosis Differential Diagnosis: TIA ,CVa , confusion ,Amnesia Medical Records I have reviewed the following patient records and this information was taken into consideration when formulating the assessment and plan.: previous labs and previous ER visits Lab Data 11/02/25 11:30 11/02/25 11:30 Labs: Lab Results 11/02/25 Range/Units 11:30 WBC 8.1 (4.8-10.8) K/mm3 RBC 4.77 (4.20-5.40) M/mm3 Hgb 14.2 H (11.7-13.8) g/dL Hct 45.0 H (35.0-42.0) % MCV 94.3 (78.0-102.0) fL MCH 29.8 (27.0-31.0) pg MCHC 31.6 L (32-36) g/dL RDW 13.6 (11.6-14.4) % Plt Count 218 (150-420) K/mm3 MPV 10.5 (9.2-11.8) fl Immature Gran % (Auto) 0.4 H (0.0-0.0) % Neut % (Auto) 67.4 (50.0-70.0) % Lymph % (Auto) 17.0 L (18.0-42.0) % Dawson % (Auto) 12.9 H (2.0-11.0) % Eos % (Auto) 1.6 (1.0-6.0) % Baso % (Auto) 0.7 (0.0-1.0) % Lymph # (Auto) 1.37 (1.10-4.50) K/mm3 Dawson # (Auto) 1.04 H (0.10-0.90) K/mm3 Eos # (Auto) 0.13 (0.02-0.50) K/mm3 Baso # (Auto) 0.06 (0.00-0.10) K/mm3 Abs Immat Gran (auto) 0.03 H (0.00-0.00) K/mm3 Absolute Neuts (auto) 5.43 (1.70-7.20) K/mm3 Absolute Nucleated RBC 0.00 (0.00-0.00) K/mm3 Nucleated RBC % 0.0 (0-0.0) % PT 19.1 H (9.50-12.1) Seconds INR 1.8 Sodium 145 (137-145) mmol/L Potassium 5.6 H (3.4-5.0) mmol/L Chloride 111 H (98-107) mmol/L Carbon Dioxide 27 (22-30) mmol/L Anion Gap 7 (4-12) mmol/L BUN 19 H (7-17) mg/dL Creatinine 1.13 H (0.7-1.0) mg/dL Estim Creat Clear Calc 36 ml/min Estimated GFR 46 L (59 - ) Glucose 103 (65-110) mg/dL Calculated Osmolality 302 H (285-295) mOsm/kg Calcium 9.3 (8.4-10.2) mg/dL Total Bilirubin 1.0 (0.2-1.3) mg/dL AST 30 (14-36) U/L ALT 17 (6-35) U/L Alkaline Phosphatase 94 (38-126) U/L Troponin I 0.012 (0.000-0.034) ng/mL Total Protein 7.6 (6.3-8.2) g/dL Albumin 4.2 (3.5-5.1) g/dL Imaging Data Radiologist's impression: ITS Impressions Head CT 11/02/25 11:52 IMPRESSION: 1. Normal aging brain. ECG Data EKG #1: ECG completion date: 11/02/25 ECG completion time: 11:48 normal rate (61), sinus rhythm, no ectopy, no ST changes, normal QRS, NL axis and no acute changes Discharge Plan Discharge Clinical Impression: TIA (transient ischemic attack), Hyperkalemia Patient Disposition: Home Condition: Stable Instructions: Transient Ischemic Attack (ED) Additional Instructions: Continue home medications, follow with your Primary doctor in the next few days , need MRI of the brain . Patient Language: [place] Follow-up/Referrals: Barby,MD Bryce [Primary Care Provider, Family Practice] Time of Disposition: 13:24
[2025-11-02] MEDS: SODIUM ZIRCONIUM CYCLOSILICATE 5 GM POWD.PACK PO (13:43)
== END 2025-11-02 13:45 | disposition home or self-care (01) ==
PROVIDERS: Emergency Provider Family Medicine; PCP Family Medicine
DX: G45.9 Transient cerebral ischemic attack, unspecified (principal); E87.5 Hyperkalemia; I10 Essential (primary) hypertension; Z86.711 Personal history of pulmonary embolism; Z79.01 Long term (current) use of anticoagulants
CPT/HCPCS: 36415; 70450; 80053; 84484; 85025; 85610; 93005; 99284; A9270